=== PATIENT | female | born 1985 | race Caucasian/White ===

== ENCOUNTER 2017-10-20 15:27 | Emergency (ER) | payer MEDICAID ==
[~2017-10-20] VITALS: Ht 154.9 cm; Wt 53.5 kg
[2017-10-20 15:30] VITALS: BP 127/87
[2017-10-20] MEDS ORDERED: KETOROLAC 30 MG/ML VIAL IM ONE (19:10)
[2017-10-20 19:30] VITALS: BP 119/72
== END 2017-10-20 19:30 | disposition home or self-care (01) ==
LOC: MED 15:27
DX: S80.02XA Contusion of left knee, initial encounter (principal); W01.0XXA Fall on same level from slipping, tripping and stumbling without subsequent striking against object, initial encounter; Y93.89 Activity, other specified; Y92.098 Other place in other non-institutional residence as the place of occurrence of the external cause; Y99.8 Other external cause status
CPT/HCPCS: 29505; 73562; 81025; 96372; 99284; J1885